=== PATIENT | male | born 1950 | race Caucasian/White ===

== ENCOUNTER 2016-09-07 13:29 | Emergency (ER) | payer MEDICARE, OTHER ==
[2016-09-07 15:09] LABS: HEMOGLOBIN 12.9 gm/dl (14.0-17.5); RED BLOOD COUNT 4.46 M/UL (4.20-5.50); WHITE BLOOD COUNT 5.7 K/UL (4.5-11.0)
[2016-09-07 17:45] LABS: BUN/CREATININE RATIO 17 (0-10)
[2016-11-15] MEDS ORDERED: AMBIEN CR12.5 MG PO (02:43)
[2016-11-15] MEDS ORDERED: PROSCAR 5 MG TAB5 MG PO (02:44)
[2016-11-15] MEDS ORDERED: OMEPRAZOLE20 M1 PO (02:45)
[2016-11-15] MEDS ORDERED: AMITIZA24 MCG PO (02:46)
[2016-11-15] MEDS ORDERED: PRAVACHOL40 MG PO (02:46)
[2016-11-15] MEDS ORDERED: GLUCOTROL5 MG PO (02:47)
[2016-11-15] MEDS ORDERED: NAPROSYN500 MG PO (02:48)
[2016-11-15] MEDS ORDERED: PRIMIDONE50 MG PO (02:48)
[2016-11-15] MEDS ORDERED: JANUVIA100 MG PO (02:49)
[2016-11-15] MEDS ORDERED: DOXYCYCLINE HY100 M2 PO (02:50)
[2016-11-15] MEDS ORDERED: TENORMIN 25 MG25 MG PO (02:50)
[2016-11-15] MEDS ORDERED: GLUCOPHAGE1000 MG PO (02:51)
[2016-11-15] MEDS ORDERED: FLOMAX 0.4 MG0.4 MG PO (02:51)
[2016-11-15] MEDS ORDERED: DIOVAN 80 MG TA80 MG PO (02:52)
[2016-11-15] MEDS ORDERED: NEURONTIN600 MG PO (02:52)
[2016-11-15] MEDS ORDERED: KEPPRA 500 MG500 MG PO (02:53)
[2016-11-15] MEDS ORDERED: VENLAFAXINE HC150 M1 PO (02:53)
[2016-11-19] MEDS ORDERED: LEVAQUIN500 MG PO (12:05)
== END 2016-09-07 21:58 | disposition short-term general hospital (02) ==
LOC: ER1 13:29
PROVIDERS: Emergency Medicine
DX: J96.90 Respiratory failure, unspecified, unspecified whether with hypoxia or hypercapnia (principal); E11.9 Type 2 diabetes mellitus without complications
CPT/HCPCS: 31500; 36415; 36600; 70450; 71010; 72125; 80053; 80307; 81001; 82550; 82553; 82803; 83605; 83690; 83874; 83880; 84484; 85025; 85610; 85730; 87040; 87086; 93005; 94002; 96361; 96374; 96375; 96376; 99285; A4628; G0480; J1953; Q2009

== ENCOUNTER 2020-12-02 13:17 | Emergency (ER) | payer MEDICARE, OTHER ==
[~2020-12-02 13:17] MED LIST: AMBIEN CR12.5 MG PO; AMITIZA24 MCG PO; ANTIVERT 25MG T25 MG PO; CHROMIUM PICO200 MCG PO; CIPRO500 MG PO; COZAAR 50MG TAB50 MG PO; COZAAR50 MG PO; DIOVAN 80 MG TA80 MG PO; DOXYCYCLINE HY100 M2 PO; FLOMAX 0.4 MG0.4 MG PO; FLOMAX0.4 MG PO; GLUCOPHAGE1000 MG PO; GLUCOTROL5 MG PO; HYDROCODON-ACE1 EAC2 PO; IMDUR ER TAB 3030 MG PO; JANUVIA100 MG PO; KEPPRA 500 MG500 MG PO; LANTUS100 UNIT/1 SQ; LEVAQUIN500 MG PO; NAPROSYN500 MG PO; NEURONTIN600 MG PO; NIACIN ER500 MG PO; NORCO 5-325 TA1 EACH PO; NORVASC10 MG PO; OMEPRAZOLE40 MG PO; PRAVACHOL40 MG PO; PRIMIDONE50 MG PO; PROSCAR 5 MG TAB5 MG PO; TENORMIN 25 MG25 MG PO; VALACYCLOVIR1000 MG PO; VENLAFAXINE HC150 M1 PO; VITAMIN E400 UNI2 PO
[2020-12-02 14:17] LABS: HEMOGLOBIN 16.4 gm/dl (14.0-17.5); RED BLOOD COUNT 5.23 M/UL (4.20-5.50); WHITE BLOOD COUNT 10.2 K/UL (4.5-11.0)
[2020-12-02 14:44] LABS: BUN/CREATININE RATIO 19 (0-10)
== END 2020-12-02 17:00 | disposition home or self-care (01) ==
LOC: ER1 13:17
PROVIDERS: Physician Assistant
DX: E11.65 Type 2 diabetes mellitus with hyperglycemia (principal); I10 Essential (primary) hypertension; E78.5 Hyperlipidemia, unspecified
CPT/HCPCS: 36600; 80053; 82009; 82550; 82553; 82800; 82962; 83874; 84484; 85025; 93005; 96374; 99285

== ENCOUNTER 2021-12-17 20:25 | Emergency (ER) | payer MEDICARE ==
[2021-12-17 21:06] LABS: HEMOGLOBIN 15.3 gm/dl (14.0-17.5); WHITE BLOOD COUNT 9.7 K/UL (4.5-11.0)
[2021-12-17 21:33] LABS: BUN/CREATININE RATIO 16 (0-10)
[2021-12-18] MEDS ORDERED: OMNICEF 300 MG300 MG PO (00:59)
[2021-12-18] MEDS ORDERED: ZOFRAN ODT 4 MG4 MG SL (00:59)
[2021-12-19] MEDS ORDERED: CARBIDOPA-LEVO1 EA14 PO (21:16)
== END 2021-12-18 01:24 | disposition home or self-care (01) ==
LOC: ER1 20:25
PROVIDERS: Student in an Organized Health Care Education/Training Program
DX: E11.65 Type 2 diabetes mellitus with hyperglycemia (principal); N39.0 Urinary tract infection, site not specified; I10 Essential (primary) hypertension
CPT/HCPCS: 70450; 71045; 80053; 80307; 81001; 82009; 82140; 82550; 82553; 82803; 82962; 83605; 84439; 84443; 84484; 85025; 87040; 87086; 93005; 96374; 96375; 99285; J0696; J2405; Q9967

== ENCOUNTER 2022-01-21 18:23 | Emergency (ER) | payer MEDICARE ==
[~2022-01-21 18:23] MED LIST changes: +CARBIDOPA-LEVO1 EA14 PO; +HYDROCODONE-AC1 EAC1 PO; +OMNICEF 300 MG300 MG PO; +ZOFRAN ODT 4 MG4 MG SL
[2022-01-21 20:15] LABS: HEMOGLOBIN 15.1 gm/dl (14.0-17.5); RED BLOOD COUNT 4.93 M/UL (4.20-5.50); WHITE BLOOD COUNT 6.5 K/UL (4.5-11.0)
[2022-01-21 20:28] LABS: BUN/CREATININE RATIO 33 (0-10)
== END 2022-01-21 23:42 | disposition home or self-care (01) ==
LOC: ER1 18:23
PROVIDERS: Student in an Organized Health Care Education/Training Program
DX: G20 Parkinson's disease (principal); F02.80 Dementia in other diseases classified elsewhere, unspecified severity, without behavioral disturbance, psychotic disturbance, mood disturbance, and anxiety; E11.9 Type 2 diabetes mellitus without complications; I10 Essential (primary) hypertension
CPT/HCPCS: 70450; 71045; 72125; 72128; 72131; 80053; 81001; 85025; 93005; 99285